=== PATIENT | female | born 2000 | race Caucasian/White ===

== ENCOUNTER 2021-12-08 16:53 | Inpatient (IN) | payer BC, SELFPAY ==
[2021-12-08 17:35] LABS: Basophils Percent Auto 0.2 % (0.2-1.2); Eosinophils Absolute Auto 0.1 K/mm3 (0-0.3); Eosinophils Percent Auto 0.7 % (0-4.4); Hematocrit 34.4 % (37.0-47.0); Hemoglobin 11.9 g/dL (12.0-15.0); Immature Granulocyte Absolute 0.05 K/mm3 (0.00-0.031); Immature Granulocyte Percent A 0.5 % (0-0.5); Lymphocytes Absolute Auto 1.52 K/mm3 (0.9-3.2); Mean Corpuscular HGB Conc 34.6 g/dl (32-36); Mean Corpuscular Hemoglobin 30.8 pg (26-34); Mean Corpuscular Volume 89.1 fl (80-100); Mean Platelet Volume 10.2 fl (7.4-10.4); Monocytes Absolute Auto 0.8 K/mm3 (0.1-0.6); Monocytes Percent Auto 8.1 % (2.6-8.5); Neutrophils Absolute Auto 7.7 K/mm3 (1.3-6.7); Neutrophils Percent Auto 75.5 % (45.5-73.1); Platelet Count Result 295 k/mm3 (150-375); Red Blood Count 3.86 M/mm3 (4.2-5.4); White Blood Count 10.1 K/mm3 (4.5-10.0)
[2021-12-08 17:37] VITALS: BP 121/68; PULSE 88
[2021-12-08] MEDS: DINOPROSTONE 10 MG VAG INSERT VAGINAL (17:38)
[2021-12-08 17:39] VITALS: BMI 35.6
--- NOTE | 2021-12-08 17:41 | LDADM ---
This patient, Stacie Lee, was admitted to Labor/Delivery/Recovery 104 on 12/08/21 at 16:53. Plans for labor, pain management and were discussed with patient. Patient/family oriented to hospital policies and general routines including ID bracelet, bed and alarms, visiting hours, pain management, procedures, bathroom and other care routines, personal items, smoking policy, room service/diet and guest tray routines, infant security routines, and visiting hours. Patient/Family are encouraged to report perceived risks to care and to ask questions if they do not understand what they are told or what they should do. See OBIX for further documentation.
[2021-12-08 18:01] VITALS: BP 108/80; PULSE 81
[2021-12-08 18:31] VITALS: BP 102/64; PULSE 80
[2021-12-08 19:00] VITALS: BP 125/57; PULSE 66
[2021-12-08 19:30] VITALS: BP 124/74; PULSE 70
[2021-12-09] VITALS (125 sets, daily range): BP systolic 61–156; BP diastolic 36–141; PULSE 60–141; RESP 14–18; TEMP 36.3–37.3; O2SAT 90–100
[2021-12-09] MEDS: fentaNYL CITRATE INJ (*CRX) 100 MCG/2 ML VIAL 50 MCG IV PUSH (01:10)
[2021-12-09 05:56] LABS: Rapid Plasma Reagin Non-Reactive (NonReactive)
[2021-12-09] MEDS: LACTATED RINGERS 1,000 ML 999 ML IV CONT ×2 (06:17→06:51)
[2021-12-09] MEDS: PHENYLEPHRINE 1,000 MCG/10 ML SYRINGE 1000 MCG (07:57)
[2021-12-09] MEDS: LACTATED RINGERS 1,000 ML 125 ML IV CONT ×2 (08:17→09:51)
--- NOTE | 2021-12-09 08:37 | WPDANESEPP ---
Anes - Eval Pre Procedure Procedure: labor epidural Date/Time: 12/09/21 08:37 Surgeon: nehemias Preop Diagnosis: pain during labor Pre Op Diagnosis: induction of labor Patient Data Age: 21 Gender: F Height: 1.68 m Weight: 100 kg Last Vital Signs Temp 36.3 C L 12/09/21 06:22 Pulse 64 12/09/21 08:36 Resp 14 12/09/21 04:00 BP 91/48 L 12/09/21 08:36 Pulse Ox 96 12/09/21 08:33 O2 Del Method Room Air 12/08/21 17:39 Allergies Allergy/AdvReac Type Severity Reaction Status Date / Time No Known Allergies Allergy Verified 12/05/21 15:17 Home Medications Medication Instructions Recorded Confirmed Type 1 mg PO DAILY 06/28/21 12/08/21 History Laboratory Tests 12/08/21 12/08/21 12/08/21 17:24 17:24 17:24 WBC 10.1 K/mm3 H K/mm3 (4.5-10.0) RBC 3.86 M/mm3 L M/mm3 (4.2-5.4) Hgb 11.9 g/dL L g/dL (12.0-15.0) Hct 34.4 % L % (37.0-47.0) MCV 89.1 fl fl (80-100) MCH 30.8 pg pg (26-34) MCHC 34.6 g/dl g/dl (32-36) RDW 13.0 % % (11.5-14.5) Plt Count 295 k/mm3 k/mm3 (150-375) MPV 10.2 fl fl (7.4-10.4) Immature Gran % (Auto) 0.5 % % (0-0.5) Neut % (Auto) 75.5 % H % (45.5-73.1) Lymph % (Auto) 15.0 % L % (18.3-44.2) [place] % (Auto) 8.1 % % (2.6-8.5) Eos % (Auto) 0.7 % % (0-4.4) Baso % (Auto) 0.2 % % (0.2-1.2) Lymph # (Auto) 1.52 K/mm3 K/mm3 (0.9-3.2) [place] # (Auto) 0.8 K/mm3 H K/mm3 (0.1-0.6) Eos # (Auto) 0.1 K/mm3 K/mm3 (0-0.3) Baso # (Auto) 0.0 K/mm3 K/mm3 (0.0-0.1) Abs Immat Gran (auto) 0.05 K/mm3 H K/mm3 (0.00-0.031) Absolute Neuts (auto) 7.7 K/mm3 H K/mm3 (1.3-6.7) Absolute Nucleated RBC 0.0 K/mm3 K/mm3 (0.0-0.012) Nucleated RBC % 0.0 % % (0.0-0.2) RPR Non-reactive (NonReactive) Blood Type A Positive Antibody Screen Negative Patient hx anesthesia problems: none Family hx anesthesia problems: none Results Review: All pre-operative results and documents have been reviewed as part of the pre-operative evaluation. [facility] [place] Past Medical History Medical History (Updated 12/09/21 @ 08:38 by Puja Mclain CRNA) Abnormal glucose tolerance in Asthma IUP (intrauterine ), incidental Obesity (BMI 30-39.9) Family History Family History (Updated 11/13/21 @ 13:37 by Romulo Maddox RN) Father Asthma Grandparent Colon cancer Social History Social History (Updated 06/25/21 @ 12:47 by Keiko Mohan MA) Smoking status: Never smoker Alcohol intake: never Substance use: never Substance use type: does not use Gender identity (if verbalized by the patient): Female Sexual Orientation (if Verbalized by the Patient): Straight or Heterosexual Spiritual care concerns: No Exam Day of Procedure 12/09/21 08:37
[2021-12-09] MEDS: OXYTOCIN 30 UNITS/NS 500 ML 30 UNITS/500 ML BAG IV CONT (09:22)
[2021-12-09] MEDS: OXYTOCIN 30 UNITS/NS 500 ML 30 UNITS/500 ML BAG 125 UNITS IV CONT (11:50)
--- NOTE | 2021-12-09 11:57 | WPDHPUPDATE1 ---
History and Physical Update Update Date/Time: 12/09/21 11:57 History and Physical has been reviewed, including an updated exam of the patient. There are NO changes in the patient's condition. Risks, benefits, and alternatives have been discussed and questions answered. Patient agrees to proceed with procedure.
--- NOTE | 2021-12-09 11:57 | WPDOBADMIT ---
Obstetrics - Admit Note Admission Note: record reviewed. No pertinent additions to the history and/or any subsequent changes in the physical findings that are not consistent with the expected course of the were found. Additions to the history and/or subsequent changes in the physical findings follow. None.
--- NOTE | 2021-12-09 11:58 | P.PCNOB_ITS ---
OB - Delivery Note Procedure Induction method: Per Cervidil Protocol Delivery augmentation: Rupture of Membranes and Pitocin Delivery monitor: External Uterine and Internal FHT Route of delivery: Episiotomy description: None Laceration Description: Perineal - 2nd Degree Delivery repair: chromic Specimen: Yes Quantitative Blood Loss (ml): 300 Anesthesia type: Epidural Disposition: Floor Complications: Mild shoulder dystocia relieved with hip flexion and suprapubic pressure Narrative: patient prepped in usual manner for this procedure. Maternal expulsive efforts delivered vertex with nuchal cord x2 reduced. Mild shoulder dystocia was encountered and suprapubic pressure along with hip flexion with delivery of the left shoulder without difficulty. Rest of baby followed cord clamped and cut and placenta delivered spontaneously. Uterus was well contracted with minimal bleeding. Cervix vagina vulva were inspected with second-degree midline laceration noted. This was approximated using 2-0 chromic running interlocking manner approximate the vaginal tissue subcuticular layer to approximate the perineum. At this point procedure was considered terminated with immediate po stoperative condition of mother baby both excellent. Baby Weeks of gestation at delivery: 39 Infant gender: Male Weight (pounds): 8 Weight (ounces): 9 presentation: vertex Cord Vessel Description: 3 Vessels score one minute: 8 score five minutes: 9 AMG Delivery Billing Delivery Delivery: Delivery Charge
[2021-12-09] MEDS: IBUPROFEN 600 MG TABLET PO ×2 (13:27→19:14)
[2021-12-09] MEDS: BENZOCAINE 20% AER SPR (*SP) 56 GM CAN 1 SPRAY TOPICAL (13:27)
[2021-12-09] MEDS: WITCH HAZEL 40 PADS 1 PAD TOPICAL (13:27)
[2021-12-09] MEDS: ACETAMINOPHEN 325 MG TABLET 650 MG PO (23:18)
[2021-12-10] MEDS: IBUPROFEN 600 MG TABLET PO ×3 (03:53→21:30)
[2021-12-10 04:00] VITALS: BP 104/66; PULSE 73; RESP 18; TEMP 36.9
[2021-12-10 05:32] LABS: Hematocrit 31.1 % (37.0-47.0); Hemoglobin 10.6 g/dL (12.0-15.0)
--- NOTE | 2021-12-10 07:31 | WPDANLDPN2 ---
Anes-Prog Note L&D Date/Time: 12/10/21 07:31 Comfortable throughout: labor and delivery Neuraxial method: epidural Epidural/Spinal procedure site: clean & non-tender Neuro status: Neuro function grossly intact. Cardiovascular status: normal Respiratory status: normal Airway patency: baseline Mental status: baseline Post-Op hydration status: normal Vital Signs: Last Vital Signs Temp 36.9 C 12/10/21 04:00 Pulse 73 12/10/21 04:00 Resp 18 12/10/21 04:00 BP 104/66 12/10/21 04:00 Pulse Ox 97 12/09/21 16:00 O2 Del Method Room Air 12/09/21 19:17 Pain score (VAS): 06/10 I/O: Intake & Output 12/09/21 12/09/21 12/10/21 15:59 23:59 07:59 Intake Total 1700 500 Output Total 1600 Balance 100 500 Post-procedural complaints: none Patient feedback: Patient satisfied with anesthetic care.
[2021-12-10 08:15] VITALS: BP 108/65; PULSE 63; RESP 18; TEMP 36.6; O2SAT 99
[2021-12-10] MEDS: DOCUSATE SODIUM 100 MG CAPSULE PO ×2 (08:39→15:42)
[2021-12-10] MEDS: MULTIVIT/MIN/PREN/FOL AC/IRON TABLET 1 TAB PO (08:39)
[2021-12-10] MEDS: ACETAMINOPHEN 325 MG TABLET 650 MG PO ×3 (08:39→21:31)
--- NOTE | 2021-12-10 08:52 | PC.NURSE ---
[id number] Primary RN reported at 0833 that mother plans to pump and feed her infant breastmilk. Breast pump provided prior to shift due to mothers preference. Instructions given on cleaning, care, usage, that there should be no pain, pumping schedule for milk production, collection, storage of human milk, and have demonstrated the education. Mother is encouraged to pump every 3 hours with 1-2 times at night for milk production. Reported to the primary RN.
--- NOTE | 2021-12-10 12:15 | P.DS_ITS ---
DS: Admitting Diagnosis Discharge Date 12/11/2021 Admitting Diagnosis OB - DS: Summary OB Procedures : None OB Procedures Intrapartum: Spontaneous Vag Delivery OB Procedures: : None Time Spent with Patient Time attestation: Total time spent providing and/or coordinating discharge services: DS: Data Data Completed and Pending Pending studies at discharge: Pending at discharge 12/09/21 11:22 Surgical [PTH] Routine Labs on day of discharge: Labs from last 24 hours 12/10/21 03:57 Hgb 10.6 L Hct 31.1 L Discharge Plan Discharge Discharging Clinician: Sean Ramos Patient Disposition: Home, Self-Care Activity: as tolerated Diet: as tolerated Patient Instructions: Antibiotic Form Stand Alone Forms: General Discharge Information Follow-up/Referrals: Sean Ramos MD [Physician] - 3 Weeks Discharge Medications: New ibuprofen 600 mg Tablet 600 mg PO Q6H PRN (Reason: Cramping) Qty: 30 0RF Continued 1 mg PO DAILY Date of admission: 12/08/21 16:53 Primary Care Provider: PHYSICIAN,ORACLE DEVELOPER Admitting Provider: Sean Ramos Attending physician on admission: Sean Ramos Condition: Stable
[2021-12-10] MEDS: TETANUS,DIPHTHERIA,AC PERTUSSIS ADULT (0.5 ML) BOOSTRIX IM (15:34)
[2021-12-10 19:04] VITALS: BP 124/79; PULSE 83; RESP 16; TEMP 36.9
[2021-12-11] MEDS: ACETAMINOPHEN 325 MG TABLET 650 MG PO (05:00)
[2021-12-11] MEDS: IBUPROFEN 600 MG TABLET PO (05:00)
--- NOTE | 2021-12-11 08:13 | PM.OBDSVD ---
DS: Admitting Diagnosis Discharge Date 12/11/2021 Admitting Diagnosis OB - DS: Summary OB Procedures : None OB Procedures Intrapartum: Spontaneous Vag Delivery OB Procedures: : None Time Spent with Patient Time attestation: Total time spent providing and/or coordinating discharge services: DS: Data Data Completed and Pending Pending studies at discharge: Pending at discharge 12/09/21 11:22 Surgical [PTH] Routine Discharge Plan Discharge Discharging Clinician: Sean Ramos Patient Disposition: Home, Self-Care Activity: as tolerated Diet: as tolerated Patient Instructions: Antibiotic Form Stand Alone Forms: General Discharge Information Follow-up/Referrals: Sean Ramos MD [Physician] - 3 Weeks Discharge Medications: New ibuprofen 600 mg Tablet 600 mg PO Q6H PRN (Reason: Cramping) Qty: 30 0RF Continued 1 mg PO DAILY Date of admission: 12/08/21 16:53 Primary Care Provider: PHYSICIAN,PACKAGING ASSOCIATE Admitting Provider: Sean Ramos Attending physician on admission: Sean Ramos Condition: Stable
[2021-12-11 08:15] VITALS: BP 115/67; PULSE 65; RESP 16; TEMP 36.6; O2SAT 100
--- NOTE | 2021-12-11 09:17 | PC.NURSE ---
Patient to view the discharge video Mother & Baby Care, The First Two Weeks online. Patient was given the opportunity and encouraged to ask questions. Patient verbalized understanding of information shared and has been given the mother/baby guide for home reference.
--- NOTE | 2021-12-11 17:02 | PC.NURSE ---
[id number] Introductions were made and RN stated she wanted to check to see if mother had a good pumping schedule to protect her milk supply. Mother led the conversation with her experience and has bottle fed her infant the entire stay but plans to breastfeed her infant at home. RN offers to work with mother latching infant to the breast. With minimal assistance infant latched to the left breast with mother using football positioning. Reviewed waiting for big, open wide gape, how to hold her breast, bringing infant to the breast when optimal gape is seen. Educated mother on how to watch for suck/swallowing ratios and keep actively . After 15 min, RN assisted mom with infant to the right breast using football positioning. Mother worked well with getting an effective latch and good active . After 15 min self detached from the breast. Mother denied any discomfort on either breast/nipple and states she is confident to breastfeed at home with the plan to supplement until her milk comes in. Reinforced understanding of milk production and how to protect the supply when bottle feeding is present. Mother is feeding appropriately for growth of infant and understands stimulating infant to eat if needed. Infant has had appropriate bottle feedings in the last 24 hours meets the outcomes for weight, output and jaundice at this time. Mother states she is confident to continue feeding her infant at home or when to call for assistance and denies any additional assistance or education at this time. Reinforced understanding of milk production, transition of milk, signs of adequate intake, prevention/relief of engorgement, responsive after visualizing feeding cues, the different methods of stimulating to breastfeed 2-3 hours after the start of the last feeding, community resources, medication information reviewed per [employer] and when to call a provider using the resource of the mom and baby guide/[facility] website. Mother voiced understanding of the education shared. Reported to the primary RN.
[2021-12-12 09:03] VITALS: BP 123/68; PULSE 75; RESP 20; TEMP 36.9; O2SAT 100
== END 2021-12-11 11:38 | disposition home or self-care (01) | DRG 807 ==
LOC: ANHLDR 16:57 → ANHOB2 12-09 15:23
PROVIDERS: Admitting Provider Obstetrics & Gynecology; Visit Provider Obstetrics & Gynecology
DX: O99.52 Diseases of the respiratory system complicating childbirth (principal); Z37.0 Single live birth; J45.909 Unspecified asthma, uncomplicated; O99.214 Obesity complicating childbirth; O76 Abnormality in fetal heart rate and rhythm complicating labor and delivery; O70.1 Second degree perineal laceration during delivery; Z3A.39 39 weeks gestation of pregnancy; O69.81X0 Labor and delivery complicated by cord around neck, without compression, not applicable or unspecified
CPT/HCPCS: 36415; 85014; 85018; 85025; 86592; 86850; 86900; 86901; 88307; 90715; A9270; J2370; J2590; J2795; J3010; J7120